=== PATIENT | female | born 1985 | race Caucasian/White ===

== ENCOUNTER 2016-12-28 11:10 | Day surgery (SDC) | payer OTHER ==
[~2016-12-28] VITALS: Ht 165.1 cm; Wt 77.0 kg
[~2016-12-28 11:10] MED LIST: MOTRIN 800800 MG/TAB PO; PERCOCET 325 MG1 TA2 PO; PRENATAL1 TA1 PO
[2016-12-28 13:28] VITALS: BP 118/79; PULSE 74; TEMP 98
[2016-12-28 14:47] VITALS: BP 97/63; PULSE 73; TEMP 97.3
[2016-12-28] MEDS ORDERED: NORCO 325 MG-51 TAB PO (14:57)
[2016-12-28] MEDS ORDERED: ZOFRAN ODT4 MG PO (14:57)
[2016-12-28 15:00] VITALS: BP 106/68; PULSE 77
[2016-12-28 15:15] VITALS: BP 95/73; PULSE 66
[2016-12-28 15:30] VITALS: BP 96/66; PULSE 69
[2016-12-28 15:45] VITALS: BP 94/63; PULSE 65
== END 2016-12-28 16:15 | disposition home or self-care (01) ==
LOC: SDCO 11:10
DX: C43.59 Malignant melanoma of other part of trunk (principal)
CPT/HCPCS: J0690; J2250; J2405; J2704; J3010; J7120

== ENCOUNTER 2019-09-21 07:03 | Inpatient (IN) | payer BC ==
[2019-09-21] VITALS (30 sets, daily range): BP systolic 90–145; BP diastolic 57–80; PULSE 65–102; TEMP 97.9–98.5
[~2019-09-21] VITALS: Ht 172.7 cm; Wt 67.3 kg
[~2019-09-21 07:03] MED LIST changes: +NORCO 325 MG-51 TAB PO; +ZOFRAN ODT4 MG PO
--- NOTE | 2019-09-21 07:15 | NUR ---
Patient ambulatory to LR5 with spouse, changed into gown, and FHR/TOCO monitors placed. Patient denies any leaking of fluid, vaginal bleeding, or regular contractions. Plan of care discussed. 0735: IV started in right forearm, blood obtained and to lab, LR infusing. SVE-/-2 Assessment completed and Consents gone over and signed. packet given.
[2019-09-21] MEDS ORDERED: PRENATAL TABLET PO (07:42)
[2019-09-21] MEDS ORDERED: COLACE 100100 MG/CAP PO (07:42)
[2019-09-21 08:40] LABS: BASO % 0.3 % (0.0-2.0); EOS # 0.1 (0.0-0.7); EOS % 1.1 % (0-4.0); GRAN # 4.4 (1.4-6.5); GRAN % 70.2 % (42.2-75.2); HEMOGLOBIN 11.6 g/dl (12.5-16.0); LYMPH # 1.3 (1.2-3.4); MEAN CELL VOLUME 94 fl (80.0-100.0); MEAN CORPUSCULAR HEMOGLOBIN 32 pg (27.0-31.0); MEAN CORPUSCULAR HGB CONC 34 g/dl (33.0-37.0); MEAN PLATELET VOLUME 11.4 fl (7.4-10.4); MONO # 0.4 (0.1-0.6); MONO % 6.9 % (1.7-9.3); PLATELET COUNT 212 K/mm3 (130-400); RED BLOOD COUNT 3.62 M/mm3 (4.10-5.30); REDCELL DISTRIBUTION WIDTH-CV 12.6 % (11.5-14.5)
[2019-09-21 08:49] LABS: HEMATOCRIT 33.9 % (37.0-47.0)
--- NOTE | 2019-09-21 08:50 | NUR ---
Dr. Joe at bedside and assessing patient and FHR strip. 0854: SVE-3/75/-2 and AROM at this time with meconium fluid noted. Plan of care discussed.
--- NOTE | 2019-09-21 11:20 | NUR ---
Patient requesting epidural at this time and Teofilo PARKER notified. 1130: Patient off monitor to void. Patient sits up at edge of bed and Teofilo PARKER at bedside for placement of epidural. Difficulty tracing FHR due to maternal position. 1147: Test dose given and patient tolerates well. 1152: Patient repositioned and safety precautions gone over. 1240: Mccarthy catheter placed per [facility] RN student and patient tolerates well. 1245: Patient states she is feeling pressure and SVE-10/100/+1. 1254: Dr Joe called and notified and on her way Mccarthy catheter removed and patient tolerates well. 1303: Dr Joe at bedside and patient prepped for vaginal delivery and bed taken apart. 1305: Patient begins to push per Dr. Hernandez orders with contractions. 1310: Spontaneous vaginal delivery of head followed by body, infant bulbed syringed and onto patients abdomen and Charlotte RICHARD assumes care of . repairs laceration at this time. 1315: Spontaneous vaginal delivery of placenta and pitocin bolus started per protocol. Fundal massage done, firm, bleeding WNL. Patient repositioned and ice pack to perineum. Plan of care discussed.
--- NOTE | 2019-09-21 12:15 | NUR ---
Dr. Mcdonnell at nurses station and reviews FHR strip. Physician at bedside to assess patient. No new orders.
--- NOTE | 2019-09-21 15:35 | NUR ---
Patient sitting on edge of bed, epidural catheter removed at this time and patient tolerates well. Patient ambulates to bathroom and voids, pericare done, and new gown/pad/underwear on. Patient ambulates to new room. Oriented to new room and plan of care discussed, whiteboard gone over.
[2019-09-22 04:00] VITALS: BP 100/61; PULSE 72; TEMP 98.3
[2019-09-22 08:25] VITALS: BP 108/64; PULSE 72; TEMP 97.8
--- NOTE | 2019-09-22 10:52 | NUR ---
Initial visit; Mom thanked Manager Engagement for offering congratulations and God's blessings for the of her daughter. Manager Engagement thanked mom for choosing [facility].
[2019-09-22 16:50] VITALS: BP 114/71; PULSE 73; TEMP 98.3
== END 2019-09-22 17:30 | disposition home or self-care (01) | DRG 807 ==
LOC: LDR 07:03 → OB 15:45
PROVIDERS: ADMIT Student in an Organized Health Care Education/Training Program
PROC: 10E0XZZ Delivery of Products of Conception, External Approach (ICD-10-PCS; principal; 2019-09-21)
PROC: 0HQ9XZZ Repair Perineum Skin, External Approach (ICD-10-PCS; 2019-09-21)
PROC: 10907ZC Drainage of Amniotic Fluid, Therapeutic from Products of Conception, Via Natural or Artificial Opening (ICD-10-PCS; 2019-09-21)
PROC: 3E033VJ Introduction of Other Hormone into Peripheral Vein, Percutaneous Approach (ICD-10-PCS; 2019-09-21)
DX: O99.824 Streptococcus B carrier state complicating childbirth (principal); Z37.0 Single live birth; O70.0 First degree perineal laceration during delivery; O76 Abnormality in fetal heart rate and rhythm complicating labor and delivery; Z3A.40 40 weeks gestation of pregnancy; Z85.820 Personal history of malignant melanoma of skin
CPT/HCPCS: J2540; J2590; J7120

== ENCOUNTER 2020-07-26 22:50 | Emergency (ER) | payer BC ==
[~2020-07-26] VITALS: Ht 165.1 cm; Wt 54.5 kg
[~2020-07-26 22:50] MED LIST changes: +COLACE 100100 MG/CAP PO; +PRENATAL TABLET PO
[2020-07-26 23:04] VITALS: TEMP 99.1
[2020-07-26] MEDS ORDERED: PROBIOTIC-10 370 MG PO (23:09)
[2020-07-26] MEDS ORDERED: MULTIVITAMIN FO1 CAP (23:09)
[2020-07-27 01:17] VITALS: BP 113/78; PULSE 66
== END 2020-07-27 01:17 | disposition home or self-care (01) ==
LOC: COL.ER 22:50
DX: F41.9 Anxiety disorder, unspecified (principal)

== ENCOUNTER → 2020-10-08 | Outpatient (REF) | payer BC ==
[~2020-10-08] MED LIST changes: +MULTIVITAMIN FO1 CAP; +PROBIOTIC-10 370 MG PO
== END | disposition still patient (30) ==
LOC: COL.LAB 08:00
DX: Z20.828 Contact with and (suspected) exposure to other viral communicable diseases (principal)